=== PATIENT | male | born 1990 | race Hispanic/Latino ===

== ENCOUNTER 2020-10-05 10:50 | Inpatient (IN) | payer MEDICARE ==
[2020-10-05 11:37] LABS: Basophils % (Auto) 0.1 % (0.0-1.8); Eosinophils % (Auto) 0.1 % (0.0-4.3); Hematocrit 39.3 % (35.5-45.6); Hemoglobin 13.3 gm/dl (11.8-15.2); Lymphocytes # (Auto) 0.6 K/mm3 (1.2-5.4); Lymphocytes % (Auto) 4.5 % (13.4-35.0); Mean Corpuscular HGB Conc 34 % (32-34); Mean Corpuscular Volume 93 fl (84-94); Monocytes # (Auto) 1.5 K/mm3 (0.0-0.8); Monocytes % (Auto) 11.4 % (0.0-7.3); Platelet Count 248 K/mm3 (140-440); Red Blood Count 4.25 M/mm3 (3.65-5.03); Red Cell Distribution Width 13.6 % (13.2-15.2)
[2020-10-05 11:44] LABS: INR 0.99 (0.87-1.13)
[2020-10-05 11:45] LABS: Partial Thromboplastin Time 38.9 Sec. (24.2-36.6)
[2020-10-05 11:58] LABS: Creatine Kinase MB 57.7 ng/mL (0.0-4.0)
[2020-10-05 11:59] LABS: Alanine Aminotransferase 52 units/L (7-56); Albumin 4.6 g/dL (3.9-5); BUN/Creatinine Ratio 15; Bilirubin,Direct 0.3 mg/dL (0-0.2); Blood Urea Nitrogen 16 mg/dL (9-20); Calcium 10.3 mg/dL (8.4-10.2); Hemolysis Index 9
--- NOTE | 2020-10-05 12:19 | XRay Report ---
RIGHT HAND 3 VIEW(S) INDICATION / CLINICAL INFORMATION: deformity previous surgery COMPARISON: None available. FINDINGS: BONES / JOINT(S): No acute fracture or subluxation. No significant arthritis. SOFT TISSUES: No significant abnormality. ADDITIONAL FINDINGS: Flexion deformity of little finger PIP joint may be secondary to chronic extenso r tendon injury. Please correlate clinically with patient's mobility Signer Name: Jimmy Stoll MD Signed: 10/05/2020 12:14 PM Workstation Name: [id number]
[2020-10-05] MEDS ORDERED: TETANUS,DIPHTHERIA TOXOID ADULT 0.5 ML INJ IM ONE (14:41)
--- NOTE | 2020-10-05 14:43 | Emergency Department Report ---
ED General Adult HPI - General Chief complaint: Medical Clearance Stated complaint: COLD EXPOSURE Time Seen by Provider: 10/05/20 11:19 Source: patient, EMS Mode of arrival: Stretcher Limitations: Other - History of Present Illness Initial comments: 30-year-old man with a history of schizophrenia and I am told cerebral palsy. Apparently he eloped from his [facility] and got lost overnight. He presented to triage with very cold hands. However, he was not hypothermic. The patient is awake and alert. He is obviously mentally impaired but this seems to be chronic. He is not a source of good information. However he can tell me that he did get lost last night and that he was outside. He states that he had surgery on his right hand in the past. There is chronic deformity of the fifth digit. There are some abrasions. There is no obvious significant ORIF scar. There is a dorsal healed wound which could be a surgical site. He does not repo rt any specific trauma. He does not report immersing his right hand. It is particularly more red and swollen than his left hand though. -: During the night - Related Data Home Medications Medication Instructions Recorded Confirmed Last Taken Divalproex ER [DepaKOTE ER] 500 mg PO DAILY 04/22/16 06/15/16 06/15/16 Venlafaxine HCl [Venlafaxine HCl 75 mg PO QAM 04/22/16 06/15/16 06/15/16 ER] risperiDONE [RisperiDONE] 4 mg PO TID 04/22/16 06/15/16 06/15/16 Divalproex [DepaKOTE DR] 2 tab PO QHS 06/15/16 06/15/16 06/14/16 diphenhydrAMINE [Benadryl CAP] 2 tab PO QHS 06/15/16 06/15/16 06/14/16 haloperidoL [Haldol] 1.5 tab PO BID 06/15/16 06/15/16 06/15/16 hydrOXYzine PAMOATE [Vistaril] 25 mg PO TID 06/15/16 06/15/16 06/15/16 Allergies Allergy/AdvReac Type Severity Reaction Status Date / Time No Known Allergies Allergy Unverified 04/18/16 20:46 ED Review of Systems ROS: Stated complaint: COLD EXPOSURE Other details as noted in HPI Comment: Unobtainable due to pts medical conditions ED Past Medical Hx - Past Medical History Hx Seizures: Yes Hx Psychiatric Treatment: Yes (schizophrenia) - Social History Smoking Status: Current Every Day Smoker - Medications Home Medications: Home Medications Medication Instructions Recorded Confirmed Last Taken Type Divalproex ER [DepaKOTE ER] 500 mg PO DAILY 04/22/16 06/15/16 06/15/16 History Venlafaxine HCl [Venlafaxine HCl 75 mg PO QAM 04/22/16 06/15/16 06/15/16 History ER] risperiDONE [RisperiDONE] 4 mg PO TID 04/22/16 06/15/16 06/15/[address] [DepaKOTE DR] 2 tab PO QHS 06/15/16 06/15/16 06/14/16 History diphenhydrAMINE [Benadryl CAP] 2 tab PO QHS 06/15/16 06/15/16 06/14/16 History haloperidoL [Haldol] 1.5 tab PO BID 06/15/16 06/15/16 06/15/16 History hydrOXYzine PAMOATE [Vistaril] 25 mg PO TID 06/15/16 06/15/16 06/15/16 History ED Physical Exam - General Limitations: Altered Mental Status General appearance: alert, in no apparent distress - Head Head exam: Present: atraumatic, normocephalic - Eye Eye exam: Present: normal appearance. Absent: scleral icterus - ENT ENT exam: Present: mucous membranes moist - Neck Neck exam: Present: normal inspection. Absent: tenderness, meningismus - Respiratory Respiratory exam: Present: normal lung sounds bilaterally. Absent: respiratory distress - Cardiovascular Cardiovascular Exam: Present: regular rate, normal rhythm. Absent: systolic murmur, diastolic murmur, rubs, gallop - GI/Abdominal GI/Abdominal exam: Present: soft, normal bowel sounds. Absent: distended, tenderness, guarding, rebound - Rectal Rectal exam: Present: deferred - Extremities Exam Extremities exam: Present: other (Right hand has 1+ edema, abrasion. Chronic flexion deformity of the fifth digit. Somewhat cooler than the left hand.) - Back Exam Back exam: Present: normal inspection - Neurological Exam Neurological exam: Present: alert, oriented X3, other (No apparent acute focal deficit) - Psychiatric Psychiatric exam: Present: normal affect, normal mood - Skin Skin exam: Present: warm, dry, intact, normal color. Absent: rash ED Course - Reevaluation(s) Reevaluation #1: Patient's hands appear to be improving. He had erythema but no signs of cyanosis at all. I believe he had grade 1 frostbite of the right hand. The left hand was largely unaffected. There are abrasions on the right hand. He was given Ancef and a tetanus toxoid. Hand cellulitis is considered also possible. He was found to be in rhabdomyolysis. He was given IV fluid and admitted to the medical service by Dr. Rincon. 10/05/20 15:52 ED Medical Decision Making - Lab Data Result diagrams: 10/05/20 11:26 10/05/20 11:26 Laboratory Results - last 24 hr 10/05/20 10/05/20 10/05/20 11:04 11:26 11:26 WBC 13.1 H RBC 4.25 Hgb 13.3 Hct 39.3 MCV 93 MCH 31 MCHC 34 RDW 13.6 Plt Count 248 Lymph % (Auto) 4.5 L [place] % (Auto) 11.4 H Eos % (Auto) 0.1 Baso % (Auto) 0.1 Lymph # (Auto) 0.6 L [place] # (Auto) 1.5 H Eos # (Auto) 0.0 Baso # (Auto) 0.0 Seg Neutrophils % 83.9 H Seg Neutrophils # 11.0 H PT 13.0 INR 0.99 APTT 38.9 H Sodium Potassium Chloride Carbon Dioxide Anion Gap BUN Creatinine Estimated GFR BUN/Creatinine Ratio Glucose POC Glucose 54 L Calcium Magnesium Total Bilirubin Direct Bilirubin Indirect Bilirubin AST ALT Alkaline Phosphatase Total Creatine Kinase CK-MB (CK-2) CK-MB (CK-2) Rel Index Total Protein Albumin Albumin/Globulin Ratio Salicylates Acetaminophen Plasma/Serum Alcohol 10/05/20 10/05/20 10/05/20 11:26 11:26 11:26 WBC RBC Hgb Hct MCV MCH MCHC RDW Plt Count Lymph % (Auto) [place] % (Auto) Eos % (Auto) Baso % (Auto) Lymph # (Auto) [place] # (Auto) Eos # (Auto) Baso # (Auto) Seg Neutrophils % Seg Neutrophils # PT INR APTT Sodium 135 L Potassium 4.6 Chloride 96.7 L Carbon Dioxide 19 L Anion Gap 24 BUN 16 Creatinine 1.1 Estimated GFR > 60 BUN/Creatinine Ratio 15 Glucose 65 L POC Glucose Calcium 10.3 H Magnesium 2.00 Total Bilirubin 0.90 Direct Bilirubin 0.3 H Indirect Bilirubin 0.6 AST 208 H ALT 52 Alkaline Phosphatase 47 Total Creatine Kinase 60720 H CK-MB (CK-2) 57.7 H CK-MB (CK-2) Rel Index 0.4 Total Protein 7.4 Albumin 4.6 Albumin/Globulin Ratio 1.6 Salicylates < 0.3 L Acetaminophen 5.0 L Plasma/Serum Alcohol 10/05/20 11:26 WBC RBC Hgb Hct MCV MCH MCHC RDW Plt Count Lymph % (Auto) [place] % (Auto) Eos % (Auto) Baso % (Auto) Lymph # (Auto) [place] # (Auto) Eos # (Auto) Baso # (Auto) Seg Neutrophils % Seg Neutrophils # PT INR APTT Sodium Potassium Chloride Carbon Dioxide Anion Gap BUN Creatinine Estimated GFR BUN/Creatinine Ratio Glucose POC Glucose Calcium Magnesium Total Bilirubin Direct Bilirubin Indirect Bilirubin AST ALT Alkaline Phosphatase Total Creatine Kinase CK-MB (CK-2) CK-MB (CK-2) Rel Index Total Protein Albumin Albumin/Globulin Ratio Salicylates Acetaminophen Plasma/Serum Alcohol < 0.01 Critical care attestation.: If time is entered above; I have spent that time in minutes in the direct care of this critically ill patient, excluding procedure time. ED Disposition Clinical Impression: Cellulitis of hand, right Rhabdomyolysis Qualifiers: Rhabdomyolysis type: traumatic Encounter type: initial encounter Qualified Code(s): T79.6XXA - Traumatic ischemia of muscle, initial encounter Schizophrenia Qualifiers: Schizophrenia type: unspecified Qualified Code(s): F20.9 - Schizophrenia, unspecified Frostbite of hand, right Qualifiers: Encounter type: initial encounter Qualified Code(s): T33.521A - Superficial frostbite of right hand, initial encounter; X31.XXXA - Exposure to excessive natural cold, initial encounter Disposition: OP ADMIT IP TO THIS HOSP Is pt being admited?: Yes Does the pt Need Aspirin: No Condition: Stable Referrals: PRIMARY CARE, [Primary Care Provider] - 3-5 Days Time of Disposition: 15:54
[2020-10-05] MEDS ORDERED: SODIUM CHLORIDE 0.9% 1000 ML 1,000 ML IV ONE (15:12)
[2020-10-05] MEDS ORDERED: SODIUM CHLORIDE 0.9% 1000 ML 1,000 ML ONE (17:49)
--- NOTE | 2020-10-06 00:24 | History and Physical Report ---
History of Present Illness Date of examination: 10/05/20 Date of admission: 10/05/20 15:55 Chief complaint: Altered sensorium since last night History of present illness: 1-year-old male in a residential with history of schizophrenia wandered off and was not found since last night. Was found [place] a ditch by people who called the police. Patient was apparently with decreased responsiveness and exposed to cold. His hands are red and painful. 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 Hands are cold to touch. Slightly painful. In the emergency room patient was found to have a has CK level and patient is near normal baseline level. - Past Medical History --Seizures: Yes --Psychiatric Treatment: Yes (schizophrenia) - Social History Smoking Status: Current Every Day Smoker Surgical history not available family history not available - Medications Home Medications: Home Medications Medication Instructions Recorded Confirmed Last Taken Type Divalproex ER [DepaKOTE ER] 500 mg PO DAILY 04/22/16 06/15/16 06/15/16 History Venlafaxine HCl [Venlafaxine HCl 75 mg PO QAM 04/22/16 06/15/16 06/15/16 History ER] risperiDONE [RisperiDONE] 4 mg PO TID 04/22/16 06/15/16 06/15/16 History Divalproex [Yumiko MENENDEZ] 2 tab PO QHS 06/15/16 06/15/16 06/14/16 History diphenhydrAMINE [Benadryl CAP] 2 tab PO QHS 06/15/16 06/15/16 06/14/16 History haloperidoL [Haldol] 1.5 tab PO BID 06/15/16 06/15/16 06/15/16 History hydrOXYzine PAMOATE [Vistaril] 25 mg PO TID 06/15/16 06/15/16 06/15/16 History Review of Systems ROS: Stated complaint: COLD EXPOSURE Other details as noted in HPI Comment: Unobtainable due to pts medical conditions Medications and Allergies Allergies Allergy/AdvReac Type Severity Reaction Status Date / Time No Known Allergies Allergy Unverified 04/18/16 20:46 Home Medications Medication Instructions Recorded Confirmed Last Taken Type Divalproex ER [DepaKOTE ER] 500 mg PO DAILY 04/22/16 10/05/20 06/15/16 History risperiDONE [RisperiDONE] 4 mg PO TID 04/22/16 10/05/20 06/15/16 History hydrOXYzine PAMOATE [Vistaril] 25 mg PO TID 06/15/16 10/05/20 06/15/16 History Alprazolam 0.5 mg BID 10/05/20 10/05/20 Unknown History Benztropine 1 mg BID 10/05/20 10/05/20 Unknown History Oxybutynin 5 mg TID 10/05/20 10/05/20 Unknown History chlorproMAZINE 150 mg BID 10/05/20 10/05/20 Unknown History Exam - Constitutional Vitals: Temp Pulse Resp BP Pulse Ox 99.0 F 95 H 18 106/73 98 10/05/20 20:06 10/05/20 20:06 10/05/20 20:06 10/05/20 20:06 10/05/20 20:06 General appearance: Present: no acute distress, well-nourished - EENT Eyes: Present: PERRL ENT: hearing intact, clear oral mucosa - Neck Neck: Present: supple, normal ROM - Respiratory Respiratory effort: normal Respiratory: bilateral: CTA - Cardiovascular Heart rate: 78 Rhythm: regular Heart Sounds: Present: S1 & S2. Absent: rub, click - Extremities Extremities: pulses symmetrical, No edema Extremity abnormal: other (Both hands are erythematous and cold but pulses can be felt) Peripheral Pulses: within normal limits - Abdominal General gastrointestinal: Present: soft, non-tender, non-distended, normal bowel sounds Male genitourinary: Present: normal - Integumentary Integumentary: Present: clear, warm, dry - Musculoskeletal Musculoskeletal: gait normal, strength equal bilaterally - Psychiatric Psychiatric: appropriate mood/affect, intact judgment & insight - Neurologic Neurologic: CNII-XII intact, moves all extremities Results - Labs CBC & Chem 7: 10/05/20 11:26 10/05/20 11:26 Labs: Laboratory Last Values WBC 13.1 K/mm3 (4.5-11.0) H 10/05/20 11:26 RBC 4.25 M/mm3 (3.65-5.03) 10/05/20 11:26 Hgb 13.3 gm/dl (11.8-15.2) 10/05/20 11:26 Hct 39.3 % (35.5-45.6) 10/05/20 11:26 MCV 93 fl (84-94) 10/05/20 11:26 MCH 31 pg (28-32) 10/05/20 11:26 MCHC 34 % (32-34) 10/05/20 11:26 RDW 13.6 % (13.2-15.2) 10/05/20 11:26 Plt Count 248 K/mm3 (140-440) 10/05/20 11:26 Lymph % (Auto) 4.5 % (13.4-35.0) L 10/05/20 11:26 [place] % (Auto) 11.4 % (0.0-7.3) H 10/05/20 11:26 Eos % (Auto) 0.1 % (0.0-4.3) 10/05/20 11:26 Baso % (Auto) 0.1 % (0.0-1.8) 10/05/20 11:26 Lymph # (Auto) 0.6 K/mm3 (1.2-5.4) L 10/05/20 11:26 [place] # (Auto) 1.5 K/mm3 (0.0-0.8) H 10/05/20 11:26 Eos # (Auto) 0.0 K/mm3 (0.0-0.4) 10/05/20 11:26 Baso # (Auto) 0.0 K/mm3 (0.0-0.1) 10/05/20 11:26 Seg Neutrophils % 83.9 % (40.0-70.0) H 10/05/20 11:26 Seg Neutrophils # 11.0 K/mm3 (1.8-7.7) H 10/05/20 11:26 PT 13.0 Sec. (12.2-14.9) 10/05/20 11:26 INR 0.99 (0.87-1.13) 10/05/20 11:26 APTT 38.9 Sec. (24.2-36.6) H 10/05/20 11:26 Sodium 135 mmol/L (137-145) L 10/05/20 11:26 Potassium 4.6 mmol/L (3.6-5.0) 10/05/20 11:26 Chloride 96.7 mmol/L (98-107) L 10/05/20 11:26 Carbon Dioxide 19 mmol/L (22-30) L 10/05/20 11:26 Anion Gap 24 mmol/L 10/05/20 11:26 BUN 16 mg/dL (9-20) 10/05/20 11:26 Creatinine 1.1 mg/dL (0.8-1.3) 10/05/20 11:26 Estimated GFR > 60 ml/min 10/05/20 11:26 BUN/Creatinine Ratio 15 % 10/05/20 11:26 Glucose 65 mg/dL (75-100) L 10/05/20 11:26 POC Glucose 54 mg/dL (70-105) L 10/05/20 11:04 Calcium 10.3 mg/dL (8.4-10.2) H 10/05/20 11:26 Magnesium 2.00 mg/dL (1.7-2.3) 10/05/20 11:26 Total Bilirubin 0.90 mg/dL (0.1-1.2) 10/05/20 11:26 Direct Bilirubin 0.3 mg/dL (0-0.2) H 10/05/20 11:26 Indirect Bilirubin 0.6 mg/dL 10/05/20 11:26 AST 208 units/L (5-40) H 10/05/20 11:26 ALT 52 units/L (7-56) 10/05/20 11:26 Alkaline Phosphatase 47 units/L (35-129) 10/05/20 11:26 Total Creatine Kinase 87391 units/L (55-170) H 10/05/20 11:26 CK-MB (CK-2) 57.7 ng/mL (0.0-4.0) H 10/05/20 11:26 CK-MB (CK-2) Rel Index 0.4 (0-4) 10/05/20 11:26 Total Protein 7.4 g/dL (6.3-8.2) 10/05/20 11:26 Albumin 4.6 g/dL (3.9-5) 10/05/20 11:26 Albumin/Globulin Ratio 1.6 % 10/05/20 11:26 Salicylates < 0.3 mg/dL (2.8-20.0) L 10/05/20 11:26 Acetaminophen 5.0 ug/mL (10.0-30.0) L 10/05/20 11:26 Plasma/Serum Alcohol < 0.01 % (0-0.07) 10/05/20 11:26 Short CBC 10/05/20 Range/Units 11:26 WBC 13.1 H (4.5-11.0) K/mm3 Hgb 13.3 (11.8-15.2) gm/dl Hct 39.3 (35.5-45.6) % Plt Count 248 (140-440) K/mm3 BMP 10/05/20 11:26 Sodium 135 L Potassium 4.6 Chloride 96.7 L Carbon Dioxide 19 L BUN 16 Creatinine 1.1 Glucose 65 L Calcium 10.3 H Cardiac Enzymes 10/05/20 Range/Units 11:26 Total Creatine Kinase 00844 H (55-170) units/L CK-MB (CK-2) 57.7 H (0.0-4.0) ng/mL Liver Function 10/05/20 Range/Units 11:26 Total Bilirubin 0.90 (0.1-1.2) mg/dL Direct Bilirubin 0.3 H (0-0.2) mg/dL AST 208 H (5-40) units/L ALT 52 (7-56) units/L Alkaline Phosphatase 47 (35-129) units/L Albumin 4.6 (3.9-5) g/dL - Imaging and Cardiology Imaging and Cardiology: Hand x-ray BONES / JOINT(S): No acute fracture or subluxation. No significant arthritis. SOFT TISSUES: No significant abnormality. ADDITIONAL FINDINGS: Flexion deformity of little finger PIP joint may be secondary to chronic extensor tendon injury. Please correlate clinically with patient's mobility Assessment and Plan Advance Directives: Yes (Full code) VTE prophylaxis?: Chemical Plan of care discussed with patient/family: Yes - Patient Problems (1) Rhabdomyolysis Current Visit: Yes Status: Acute Qualifiers: Rhabdomyolysis type: traumatic Encounter type: initial encounter Qualified Code(s): T79.6XXA - Traumatic ischemia of muscle, initial encounter Plan to address problem: IV fluids for now Monitor creatinine kinase (2) Frostbite of hand, right Current Visit: Yes Status: Acute Qualifiers: Encounter type: initial encounter Qualified Code(s): T33.521A - Superficial frostbite of right hand, initial encounter; X31.XXXA - Exposure to excessive natural cold, initial encounter Plan to address problem: Hand looks normal to me and no signs of infection Per ER physician- frostbite Observation for now (3) Schizophrenia Current Visit: Yes Status: Chronic Qualifiers: Schizophrenia type: unspecified Qualified Code(s): F20.9 - Schizophrenia, u nspecified Plan to address problem: Continue his home medications Mental health consult (4) DVT prophylaxis Current Visit: Yes Status: Acute Plan to address problem: Heparin and GI prophylaxis
[2020-10-06] MEDS ORDERED: METOCLOPRAMIDE 10 MG/2 ML INJ IV PRN (00:28)
[2020-10-06] MEDS ORDERED: oxyCODONE /ACETAMINOPHEN 5-325MG TAB PO PRN (00:28)
[2020-10-06] MEDS ORDERED: ACETAMINOPHEN 325 MG TAB PO PRN (00:28)
[2020-10-06] MEDS ORDERED: ONDANSETRON 4 MG/2 ML INJ IV PRN (00:28)
[2020-10-06] MEDS ORDERED: BENZTROPINE 1 MG PO SCH (00:45)
[2020-10-06] MEDS ORDERED: CHLORPROMAZINE PO SCH (00:45)
[2020-10-06] MEDS ORDERED: HEPARIN 5,000 UNIT/1 ML VIAL SUB-Q SCH (00:45)
[2020-10-06] MEDS ORDERED: NON-FORMULARY EACH (Alprazolam 0.5 MG) PO SCH (00:45)
[2020-10-06 01:24] LABS: Basophils % (Auto) 0.4 % (0.0-1.8); Eosinophils # (Auto) 0.1 K/mm3 (0.0-0.4); Eosinophils % (Auto) 1.5 % (0.0-4.3); Hematocrit 34.7 % (35.5-45.6); Lymphocytes # (Auto) 1.4 K/mm3 (1.2-5.4); Lymphocytes % (Auto) 16.6 % (13.4-35.0); Mean Corpuscular HGB Conc 35 % (32-34); Mean Corpuscular Volume 91 fl (84-94); Monocytes # (Auto) 1.2 K/mm3 (0.0-0.8); Monocytes % (Auto) 13.6 % (0.0-7.3); Platelet Count 221 K/mm3 (140-440); Red Blood Count 3.84 M/mm3 (3.65-5.03); Red Cell Distribution Width 13.6 % (13.2-15.2)
[2020-10-06 01:42] LABS: Alanine Aminotransferase 40 units/L (7-56); Albumin 3.5 g/dL (3.9-5); BUN/Creatinine Ratio 11; Blood Urea Nitrogen 11 mg/dL (9-20); Hemolysis Index 5
[2020-10-06] MEDS: SODIUM CHLORIDE 0.9% 1000 ML 1,000 ML IV SCH (01:49)
[2020-10-06] MEDS: BENZTROPINE 1 MG TAB PO SCH ×3 (01:50→22:25)
[2020-10-06] MEDS: ALPRAZolam 0.5 MG TAB PO SCH ×3 (01:50→22:21)
[2020-10-06] MEDS: HEPARIN 5,000 UNIT/1 ML VIAL SUB-Q SCH ×3 (01:51→22:22)
[2020-10-06] MEDS: chlorproMAZINE 25 MG TAB PO SCH ×3 (01:51→22:25)
[2020-10-06 05:15] LABS: Amphetamine Screen,Urine PRESUMPTIVE NEGATIVE; Benzodiazepines Screen,Urine PRESUMPTIVE NEGATIVE; Cannabinoid Screen,Urine PRESUMPTIVE NEGATIVE; Cocaine Screen,Urine PRESUMPTIVE NEGATIVE; Methadone Screen,Urine PRESUMPTIVE NEGATIVE; Opiate Screen,Urine PRESUMPTIVE NEGATIVE
[2020-10-06 05:28] LABS: Bilirubin,Urine NEG (Negative); Blood,Urine NEG (Negative); Color,Urine Straw (Yellow); Protein,Urine <15 mg/dL mg/dL (Negative); Urobilinogen,Urine < 2.0 mg/dL (<2.0); WBC,Urine < 1.0 /HPF (0.0-6.0)
[2020-10-06] MEDS ORDERED: OXYBUTYNIN 5 MG PO SCH (08:00)
[2020-10-06] MEDS ORDERED: risperiDONE 1 MG TAB PO SCH ×2 (08:00)
[2020-10-06] MEDS ORDERED: risperiDONE 3 MG TAB PO SCH (08:00)
[2020-10-06] MEDS: DIVALPROEX ER 500 MG TAB PO SCH (10:28)
[2020-10-06] MEDS: FAMOTIDINE 20 MG TAB PO SCH ×2 (10:28→22:21)
[2020-10-06] MEDS: hydrOXYzine PAMOATE 25 MG CAP PO SCH ×3 (10:30→22:25)
[2020-10-06] MEDS: OXYBUTYNIN 5 MG TAB PO SCH ×3 (10:41→22:21)
--- NOTE | 2020-10-06 11:41 | Consultation ---
History of Present Illness - Reason for Consult Consult date: 10/06/20 Reason for consult: history schizophrenia - History of Present Psychiatric Illness Castillo Wiggins is a 30y/o male patient who was brought to the ER after eloping from his [facility] and was found hypothermic. During my interview with the patient today he is a/o x 2. It is documented that he has a history of schizophrenia. The patient seems mentally impaired. His responses are delayed. He's unable to give a lot of insight into what's going on with him or his history. He replies "might fine" when asking how he felt. The patient did state that he was at his "usp and was walking next to the road." He denies any illicit drug use, alcohol or nicotine. He states "no, seriously" when asked. The patient also denies hallucinations of any kind. He states "not at all." When asked about SI/HI the patient replies "never." PAST PSYCHIATRIC HISTORY Diagnoses: Schizophrenia Suicide attempts or Self-harm behavior: Denies Prior psychiatric hospitalizations: Substance Abuse history: Denies Previous psychiatric medications tried: Depakote Outpatient treatment: PAST MEDICAL HISTORY: None reported Family Psychiatric History: None reported or documented SOCIAL HISTORY Marital Status: Single Living Arrangements: custodial Employment Status: Disabled Access to guns/weapons: Education: College History of Abuse: Legal History: Denies REVIEW OF SYSTEMS Constitutional: Negative for weight loss ENT: Negative for stridor Respiratory: Negative for cough or hemoptysis All other systems reviewed and are negative MENTAL STATUS EXAMINATION General Appearance and Behavior: Age appropriate, good hygiene, wearing appropriate clothes, fair eye contact Cooperation: Participating/engaged Psychomotor Behavior: Psychomotor normal Mood: "mighty fine" Affect and affective range: Congruent with mood Thought Process: impaired Thought Content: None Speech: Normal rate, volume and rhythm, delayed responses Suicidal Ideation: Denies Homicidal Ideation: Denies Impulse Control: Limited Insight and Judgment: Limited insight and judgment Memory: Impaired Attention: Normal Orientation: Alert Assessment and Plan History of Schizophrenia Treatment Plan MEDICATIONS: agree with home medications Risks, benefits and alternatives of medications discussed with the patient, questions answered and consent obtained from patient. PSYCHOTHERAPY: Supportive psychotherapy provided MEDICAL: Per primary team DELIRIUM PRECAUTIONS: Please re-orient patient frequently, keep lights on during the day, and minimize benzodiazepines and opiates as these medications could worsen patient's confusion. 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 Will follow during his stay on the floor to see how he progresses. FOLLOW-UP: Will follow Thank you for this consult. Please contact with any questions and/or concerns. Case staffed with Dr. Roth Medications and Allergies Allergies Allergy/AdvReac Type Severity Reaction Status Date / Time No Known Allergies Allergy Unverified 04/18/16 20:46 Home Medications Medication Instructions Recorded Confirmed Last Taken Type Divalproex ER [DepaKOTE ER] 500 mg PO DAILY 04/22/16 10/05/20 06/15/16 History risperiDONE [RisperiDONE] 4 mg PO TID 04/22/16 10/05/20 06/15/16 History hydrOXYzine PAMOATE [Vistaril] 25 mg PO TID 06/15/16 10/05/20 06/15/16 History Alprazolam 0.5 mg BID 10/05/20 10/05/20 Unknown History Benztropine 1 mg BID 10/05/20 10/05/20 Unknown History Oxybutynin 5 mg TID 10/05/20 10/05/20 Unknown History chlorproMAZINE 150 mg BID 10/05/20 10/05/20 Unknown History Active Meds: Active Medications Acetaminophen (Tylenol) 650 mg PO Q4H PRN PRN Reason: Pain MILD(1-3)/Fever >100.5/[place] Alprazolam (Xanax) 0.5 mg PO BID [facility] [place] Last Admin: 10/06/20 10:28 Dose: 0.5 mg Documented by: Benztropine Mesylate (Cogentin) 1 mg PO BID [facility] [place] Last Admin: 10/06/20 10:30 Dose: 1 mg Documented by: Chlorpromazine HCl (Thorazine) 150 mg PO BID [facility] [place] Last Admin: 10/06/20 10:30 Dose: 150 mg Documented by: Divalproex Sodium (Depakote Er) 500 mg PO DAILY [facility] [place] Last Admin: 10/06/20 10:28 Dose: 500 mg Documented by: Famotidine (Pepcid) 20 mg PO BID [facility] [place] Last Admin: 10/06/20 10:28 Dose: 20 mg Documented by: Heparin Sodium (Porcine) (Heparin) 5,000 unit SUB-Q Q12HR [facility] [place] Last Admin: 10/06/20 10:31 Dose: 5,000 unit Documented by: Hydroxyzine Pamoate (Vistaril) 25 mg PO TID [facility] [place] Last Admin: 10/06/20 10:30 Dose: 25 mg Documented by: Sodium Chloride (Nacl 0.9% 1000 Ml) 1,000 mls @ 125 mls/hr IV DIRECT [facility] [place] Last Admin: 10/06/20 01:49 Dose: 125 mls/hr Documented by: Metoclopramide HCl (Reglan) 10 mg IV Q6H PRN PRN Reason: Nausea And Vomiting Ondansetron HCl (Zofran) 4 mg IV Q8H PRN PRN Reason: Nausea And Vomiting Oxybutynin Chloride (Ditropan) 5 mg PO TID [facility] [place] Last Admin: 10/06/20 10:41 Dose: 5 mg Documented by: Oxycodone/Acetaminophen (Percocet 5/325) 1 tab PO Q6H PRN PRN Reason: Pain, Moderate (4-6) Risperidone (Risperdal) 3 mg PO TID [facility] [place] Risperidone (Risperdal) 1 mg PO TID [facility] [place] Last Admin: 10/06/20 10:29 Dose: 1 mg Documented by: Sodium Chloride (Sodium Chloride Flush Syringe 10 Ml) 10 ml IV BID [facility] [place] Last Admin: 10/06/20 10:35 Dose: 10 ml Documented by: Sodium Chloride (Sodium Chloride Flush Syringe 10 Ml) 10 ml IV PRN PRN PRN Reason: LINE FLUSH Last Admin: 10/06/20 01:52 Dose: 10 ml Documented by: Mental Status Exam - Vital signs Last Vital Signs Temp 98.3 F 10/06/20 05:48 Pulse 83 10/06/20 05:48 Resp 18 10/06/20 05:48 BP 88/44 10/06/20 05:48 Pulse Ox 93 10/06/20 05:48 Results Result Diagrams: 10/06/20 00:57 10/06/20 00:57 Abnormal lab results 10/05/20 10/05/20 10/05/20 Range/Units 11:26 11:26 11:26 Hct (35.5-45.6) % MCHC (32-34) % [place] % (Auto) (0.0-7.3) % [place] # (Auto) (0.0-0.8) K/mm3 APTT 38.9 H (24.2-36.6) Sec. Sodium 135 L (137-145) mmol/L Chloride 96.7 L (98-107) mmol/L Carbon Dioxide 19 L (22-30) mmol/L Glucose 65 L (75-100) mg/dL Calcium 10.3 H (8.4-10.2) mg/dL Direct Bilirubin 0.3 H (0-0.2) mg/dL AST 208 H (5-40) units/L Total Creatine Kinase 21014 H (55-170) units/L CK-MB (CK-2) 57.7 H (0.0-4.0) ng/mL Total Protein (6.3-8.2) g/dL Albumin (3.9-5) g/dL Salicylates < 0.3 L (2.8-20.0) mg/dL Acetaminophen (10.0-30.0) ug/mL 10/05/20 10/06/20 10/06/20 Range/Units 11:26 00:57 00:57 Hct 34.7 L (35.5-45.6) % MCHC 35 H (32-34) % [place] % (Auto) 13.6 H (0.0-7.3) % [place] # (Auto) 1.2 H (0.0-0.8) K/mm3 APTT (24.2-36.6) Sec. Sodium (137-145) mmol/L Chloride (98-107) mmol/L Carbon Dioxide (22-30) mmol/L Glucose 121 H (75-100) mg/dL Calcium (8.4-10.2) mg/dL Direct Bilirubin (0-0.2) mg/dL AST 134 H (5-40) units/L Total Creatine Kinase (55-170) units/L CK-MB (CK-2) (0.0-4.0) ng/mL Total Protein 5.7 L D (6.3-8.2) g/dL Albumin 3.5 L (3.9-5) g/dL Salicylates (2.8-20.0) mg/dL Acetaminophen 5.0 L (10.0-30.0) ug/mL 10/06/20 Range/Units 00:57 Hct (35.5-45.6) % MCHC (32-34) % [place] % (Auto) (0.0-7.3) % [place] # (Auto) (0.0-0.8) K/mm3 APTT (24.2-36.6) Sec. Sodium (137-145) mmol/L Chloride (98-107) mmol/L Carbon Dioxide (22-30) mmol/L Glucose (75-100) mg/dL Calcium (8.4-10.2) mg/dL Direct Bilirubin (0-0.2) mg/dL AST (5-40) units/L Total Creatine Kinase 5448 H (55-170) units/L CK-MB (CK-2) (0.0-4.0) ng/mL Total Protein (6.3-8.2) g/dL Albumin (3.9-5) g/dL Salicylates (2.8-20.0) mg/dL Acetaminophen (10.0-30.0) ug/mL All other labs normal.
--- NOTE | 2020-10-06 12:30 | Progress Note ---
Subjective Date of service: 10/06/20 Interval history: 30-year-old male in a long term with history of schizophrenia wandered off and was not found since last night. Was found in a ditch by people who called the police. Patient was apparently with decreased responsiveness and exposed to cold. His hands are red and painful. 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 Hands are cold to touch. Slightly painful. In the emergency room patient was found to have a has CK level and patient is near normal baseline level. 10/06 patient is resting in the bed, no apparent distress, difficult to communicate with, responds to questions with eyes closed,, denies any pain, chest pain or shortness of breath. Denies fever or chills. Psychiatry note reviewed. Vital signs blood pressure this morning dropped to 88 systolic. Lab results reviewed Assessment and plan Rhabdomyolysis Improving CK dropped from 13,000- approximately 5000 today Continue IV fluids with normal saline Possible discharge tomorrow if further drop in CK Chronic schizophrenia Patient appears quite sleepy Psych note reviewed His home anti-psych medications were not addressed Will decrease risperidone to 2 mg 3 times daily for now Continue Depakote Exposure to cold Temp is in the normal range now Leukocytosis-likely reactive Improved Objective - Constitutional Vitals: Vital Signs - 12hr 10/06/20 05:48 Temperature 98.3 F Pulse Rate 83 Respiratory 18 Rate Blood Pressure 88/44 O2 Sat by Pulse 93 Oximetry General appearance: Present: no acute distress - EENT Eyes: PERRL, EOM intact ENT: hearing intact - Neck Neck: supple, normal ROM - Respiratory Respiratory effort: normal Respiratory: bilateral: CTA - Cardiovascular Rhythm: regular Heart Sounds: Present: S1 & S2 Extremities: No edema - Gastrointestinal General gastrointestinal: Present: soft, non-tender Rectal Exam: deferred - Genitourinary Male genitourinary: deferred - Integumentary Integumentary: clear, warm - Neurologic Neurologic: no focal deficits, moves all extremities - Psychiatric Psychiatric: other (Flat affect) - Labs CBC & Chem 7: 10/06/20 00:57 10/06/20 00:57 Labs: Abnormal lab results 10/06/20 10/06/20 10/06/20 Range/Units 00:57 00:57 00:57 Hct 34.7 L (35.5-45.6) % MCHC 35 H (32-34) % [place] % (Auto) 13.6 H (0.0-7.3) % [place] # (Auto) 1.2 H (0.0-0.8) K/mm3 Glucose 121 H (75-100) mg/dL AST 134 H (5-40) units/L Total Creatine Kinase 5448 H (55-170) units/L Total Protein 5.7 L D (6.3-8.2) g/dL Albumin 3.5 L (3.9-5) g/dL
[2020-10-06] MEDS: risperiDONE 1 MG TAB PO SCH ×2 (19:28→22:21)
[2020-10-07] MEDS: SODIUM CHLORIDE 0.9% 1000 ML 1,000 ML IV SCH ×2 (05:58→21:37)
[2020-10-07 06:55] LABS: Basophils % (Auto) 0.7 % (0.0-1.8); Eosinophils # (Auto) 0.3 K/mm3 (0.0-0.4); Eosinophils % (Auto) 5.1 % (0.0-4.3); Hematocrit 33.4 % (35.5-45.6); Hemoglobin 11.6 gm/dl (11.8-15.2); Lymphocytes # (Auto) 2.3 K/mm3 (1.2-5.4); Lymphocytes % (Auto) 36.9 % (13.4-35.0); Mean Corpuscular HGB Conc 35 % (32-34); Mean Corpuscular Volume 91 fl (84-94); Monocytes # (Auto) 0.7 K/mm3 (0.0-0.8); Monocytes % (Auto) 12.1 % (0.0-7.3); Platelet Count 226 K/mm3 (140-440); Red Blood Count 3.68 M/mm3 (3.65-5.03)
[2020-10-07 07:12] LABS: Alanine Aminotransferase 46 units/L (7-56); Albumin 3.4 g/dL (3.9-5); BUN/Creatinine Ratio 13; Blood Urea Nitrogen 10 mg/dL (9-20); Calcium 9.1 mg/dL (8.4-10.2); Hemolysis Index 2
[2020-10-07 07:13] LABS: BUN/Creatinine Ratio 13; Blood Urea Nitrogen 10 mg/dL (9-20); Hemolysis Index 6
[2020-10-07] MEDS: FAMOTIDINE 20 MG TAB PO SCH ×2 (09:32→21:37)
[2020-10-07] MEDS: HEPARIN 5,000 UNIT/1 ML VIAL SUB-Q SCH ×2 (09:32→21:39)
[2020-10-07] MEDS: ALPRAZolam 0.5 MG TAB PO SCH ×2 (09:33→21:37)
[2020-10-07] MEDS: OXYBUTYNIN 5 MG TAB PO SCH ×3 (09:33→21:37)
[2020-10-07] MEDS: DIVALPROEX ER 500 MG TAB PO SCH (09:33)
[2020-10-07] MEDS: risperiDONE 1 MG TAB PO SCH ×3 (09:33→21:38)
[2020-10-07] MEDS: hydrOXYzine PAMOATE 25 MG CAP PO SCH ×3 (09:34→21:37)
[2020-10-07] MEDS: BENZTROPINE 1 MG TAB PO SCH ×2 (09:34→21:38)
[2020-10-07] MEDS: chlorproMAZINE 25 MG TAB PO SCH ×2 (09:34→21:37)
[2020-10-07] MEDS ORDERED: SODIUM CHLORIDE 0.9% 1000 ML 2,000 ML IV ONE (10:00)
--- NOTE | 2020-10-07 10:13 | Discharge Summary ---
Providers - Providers Date of Admission: 10/06/20 14:58 Attending physician: ADRIANA ROSS MD 10/06/20 00:33 Consult to Mental Health [CONS] Routine Reason For Exam: History of schizophrenia and elopement Primary care physician: RN [employer] Hospitalization Reason for admission: Altered mental status Condition: Stable Hospital course: 30-year-old male in a retirement with history of schizophrenia wandered off and was not found since last night. Was found in a ditch by people who called the police. Patient was apparently with decreased responsiveness and exposed to cold. His hands are red and painful. 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 Hands are cold to touch. Slightly painful. In the emergency room patient was found to have a has CK level and patient is near normal baseline level. 10/06 patient is resting in the bed, no apparent distress, difficult to communicate with, responds to questions with eyes closed,, denies any pain, chest pain or shortness of breath. Denies fever or chills. Psychiatry note reviewed. Vital signs blood pressure this morning dropped to 88 systolic. Lab results reviewed 10/07: Patient seen and examined today resting comfortably CK is down to 1300. Patient was seen by psych team. No recommendation for inpatient psych. Can be discharged at this time. Case management consulted to assist with discharge disposition. 10/08: CK further improved. Patient discharged today. Assessment and plan Rhabdomyolysis Improving CK dropped from 13,000- approximately 5000 today Continue IV fluids with normal saline Possible discharge tomorrow if further drop in CK Acute metabolic encephalopathy, now resolved Likely secondary to hypothermia chronic schizophrenia Patient appears quite sleepy Psych note reviewed His home anti-psych medications were not addressed Will decrease risperidone to 2 mg 3 times daily for now Continue Depakote No clinical evidence of Cellulitis Exposure to weather elements: Cold Temp is in the normal range now Leukocytosis-likely reactive Improved Disposition: DC-01 TO HOME OR SELFCARE Time spent for discharge: 35-minute Core Measure Documentation - Palliative Care Palliative Care/ Comfort Measures: Not Applicable - Core Measures Any of the following diagnoses?: none Exam - Physical Exam Narrative exam: VITAL SIGNS: Reviewed. GENERAL: The patient appears normally developed, vital signs as documented. HEAD: No signs of head trauma. EYES: Pupils are equal. Extraocular motions intact. EARS: Hearing grossly intact. MOUTH: Oropharynx is normal. NECK: No adenopathy, no JVD. CHEST: Chest with clear breath sounds bilaterally. No wheezes, rales, or rhonchi. CARDIAC: Regular rate and rhythm. S1 and S2, without murmurs, gallops, or rubs. VASCULAR: No Edema. Peripheral pulses normal and equal in all extremities. ABDOMEN: Soft, non tender and non distended. No rebound or guarding, and no masses palpated. Bowel Sounds normal. MUSCULOSKELETAL: Good range of motion of all major joints. Extremities without clubbing, cyanosis or edema. NEUROLOGIC EXAM: Alert and oriented x 3 No focal sensory or strength deficits. Speech normal. Follows commands. PSYCHIATRIC: Mood normal. SKIN: detail exam as documented in skin assessment - Constitutional Vitals: Temp Pulse Resp BP Pulse Ox 97.3 F L 78 16 90/51 96 10/07/20 05:58 10/07/20 05:58 10/07/20 05:58 10/07/20 05:58 10/07/20 05:58 Plan Activity: advance as tolerated, fall precautions Diet: low fat Special Instructions: record daily weights, record daily BP diary Additional Instructions: Continue to follow with outpatient psychiatrist Follow up with: PRIMARY MD MARY [Primary Care Provider] - 3-5 Days [facility] [Outside] - 7 Days
--- NOTE | 2020-10-07 12:26 | Progress Note ---
Subjective - Reason for Consult Consult date: 10/07/20 Reason for consult: ams - Chief Complaint Chief complaint: The patient was resting quietly. He easily arouses. He says he slept "pretty good." He denies SI/HI or hallucinations of any kind. Nurse at bedside states the patient has been calm, cooperative and hasn't shown any aggressive or negative behaviors. REVIEW OF SYSTEMS Constitutional: Negative for weight loss ENT: Negative for stridor Respiratory: Negative for cough or hemoptysis All other systems reviewed and are negative MENTAL STATUS EXAMINATION General Appearance and Behavior: Age appropriate, good hygiene, wearing appropriate clothes, fair eye contact Cooperation: Participating/engaged Psychomotor Behavior: Psychomotor normal Mood: "good" Affect and affective range: Congruent with mood Thought Process: impaired Thought Content: None Speech: Normal rate, volume and rhythm, delayed responses Suicidal Ideation: Denies Homicidal Ideation: Denies Impulse Control: Limited Insight and Judgment: Limited insight and judgment Memory: Impaired Attention: Normal Orientation: Alert Assessment and Plan History of Schizophrenia Treatment Plan MEDICATIONS: agree with home medications Risks, benefits and alternatives of medications discussed with the patient, questions answered and consent obtained from patient. PSYCHOTHERAPY: Supportive psychotherapy provided MEDICAL: Per primary team DELIRIUM PRECAUTIONS: Please re-orient patient frequently, keep lights on during the day, and minimize benzodiazepines and opiates as these medications could worsen patient's confusion. 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 Please contact with any questions and/or concerns. Case staffed with Dr. Roth Mental Status Exam - Vital signs Last Vital Signs Temp 97.4 F L 10/07/20 10:45 Pulse 93 H 10/07/20 10:45 Resp 19 10/07/20 10:45 BP 91/48 10/07/20 10:45 Pulse Ox 97 10/07/20 10:45
[2020-10-08 02:54] VITALS: BP 111/64
--- NOTE | 2020-10-08 07:54 | Progress Note ---
Assessment and Plan Assessment and plan: 30-year-old male in a residential with history of schizophrenia wandered off and was not found since last night. Was found in a ditch by people who called the police. Patient was apparently with decreased responsiveness and exposed to cold. His hands are red and painful. 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 Hands are cold to touch. Slightly painful. In the emergency room patient was found to have a has CK level and patient is near normal baseline level. 10/06 patient is resting in the bed, no apparent distress, difficult to communicate with, responds to questions with eyes closed,, denies any pain, chest pain or shortness of breath. Denies fever or chills. Psychiatry note reviewed. Vital signs blood pressure this morning dropped to 88 systolic. Lab results reviewed 10/07: Patient clinical stable for discharge, awaiting placement Assessment and plan Rhabdomyolysis Improving CK dropped from 13,000- approximately 5000 today Continue IV fluids with normal saline Possible discharge tomorrow if further drop in CK Chronic schizophrenia Patient appears quite sleepy Psych note reviewed His home anti-psych medications were not addressed Will decrease risperidone to 2 mg 3 times daily for now Continue Depakote Exposure to cold Temp is in the normal range now Leukocytosis-likely reactive Improved History Interval history: Patient seen and examined, no new complaints Hospitalist Physical - Physical exam Narrative exam: VITAL SIGNS: Reviewed. GENERAL: The patient appears normally developed, vital signs as documented. HEAD: No signs of head trauma. EYES: Pupils are equal. Extraocular motions intact. EARS: Hearing grossly intact. MOUTH: Oropharynx is normal. NECK: No adenopathy, no JVD. CHEST: Chest with clear breath sounds bilaterally. No wheezes, rales, or rhonchi. CARDIAC: Regular rate and rhythm. S1 and S2, without murmurs, gallops, or rubs. VASCULAR: No Edema. Peripheral pulses normal and equal in all extremities. ABDOMEN: Soft, non tender and non distended. No rebound or guarding, and no masses palpated. Bowel Sounds normal. MUSCULOSKELETAL: Good range of motion of all major joints. Extremities without clubbing, cyanosis or edema. NEUROLOGIC EXAM: Alert and oriented x 3 No focal sensory or strength deficits. Speech normal. Follows commands. PSYCHIATRIC: Mood normal. SKIN: detail exam as documented in skin assessment - Constitutional Vitals: Temp Pulse Resp BP Pulse Ox 97.9 F 79 16 111/64 99 10/07/20 21:58 10/07/20 21:58 10/07/20 21:58 10/07/20 21:58 10/07/20 21:58 General appearance: Present: no acute distress Results - Labs CBC & Chem 7: 10/07/20 04:42 10/07/20 04:42 Labs: Laboratory Last Values WBC 6.2 K/mm3 (4.5-11.0) 10/07/20 04:42 RBC 3.68 M/mm3 (3.65-5.03) 10/07/20 04:42 Hgb 11.6 gm/dl (11.8-15.2) L 10/07/20 04:42 Hct 33.4 % (35.5-45.6) L 10/07/20 04:42 MCV 91 fl (84-94) 10/07/20 04:42 MCH 32 pg (28-32) 10/07/20 04:42 MCHC 35 % (32-34) H 10/07/20 04:42 RDW 14.0 % (13.2-15.2) 10/07/20 04:42 Plt Count 226 K/mm3 (140-440) 10/07/20 04:42 Lymph % (Auto) 36.9 % (13.4-35.0) H 10/07/20 04:42 [place] % (Auto) 12.1 % (0.0-7.3) H 10/07/20 04:42 Eos % (Auto) 5.1 % (0.0-4.3) H 10/07/20 04:42 Baso % (Auto) 0.7 % (0.0-1.8) 10/07/20 04:42 Lymph # (Auto) 2.3 K/mm3 (1.2-5.4) 10/07/20 04:42 [place] # (Auto) 0.7 K/mm3 (0.0-0.8) 10/07/20 04:42 Eos # (Auto) 0.3 K/mm3 (0.0-0.4) 10/07/20 04:42 Baso # (Auto) 0.0 K/mm3 (0.0-0.1) 10/07/20 04:42 Seg Neutrophils % 45.2 % (40.0-70.0) 10/07/20 04:42 Seg Neutrophils # 2.8 K/mm3 (1.8-7.7) 10/07/20 04:42 PT 13.0 Sec. (12.2-14.9) 10/05/20 11:26 INR 0.99 (0.87-1.13) 10/05/20 11:26 APTT 38.9 Sec. (24.2-36.6) H 10/05/20 11:26 Sodium 141 mmol/L (137-145) 10/07/20 04:42 Sodium 141 mmol/L (137-145) 10/07/20 04:42 Potassium 3.9 mmol/L (3.6-5.0) 10/07/20 04:42 Potassium 3.9 mmol/L (3.6-5.0) 10/07/20 04:42 Chloride 107.7 mmol/L (98-107) H 10/07/20 04:42 Chloride 107.8 mmol/L (98-107) H 10/07/20 04:42 Carbon Dioxide 22 mmol/L (22-30) 10/07/20 04:42 Carbon Dioxide 23 mmol/L (22-30) 10/07/20 04:42 Anion Gap 14 mmol/L 10/07/20 04:42 Anion Gap 15 mmol/L 10/07/20 04:42 BUN 10 mg/dL (9-20) 10/07/20 04:42 BUN 10 mg/dL (9-20) 10/07/20 04:42 Creatinine 0.8 mg/dL (0.8-1.3) 10/07/20 04:42 Creatinine 0.8 mg/dL (0.8-1.3) 10/07/20 04:42 Estimated GFR > 60 ml/min 10/07/20 04:42 Estimated GFR > 60 ml/min 10/07/20 04:42 BUN/Creatinine Ratio 13 % 10/07/20 04:42 BUN/Creatinine Ratio 13 % 10/07/20 04:42 Glucose 82 mg/dL (75-100) 10/07/20 04:42 Glucose 83 mg/dL (75-100) 10/07/20 04:42 POC Glucose 54 mg/dL (70-105) L 10/05/20 11:04 Hemoglobin A1c 4.4 % (4-6) 10/06/20 00:57 Calcium 9.0 mg/dL (8.4-10.2) 10/07/20 04:42 Calcium 9.1 mg/dL (8.4-10.2) 10/07/20 04:42 Magnesium 2.00 mg/dL (1.7-2.3) 10/05/20 11:26 Total Bilirubin 0.30 mg/dL (0.1-1.2) 10/07/20 04:42 Direct Bilirubin 0.3 mg/dL (0-0.2) H 10/05/20 11:26 Indirect Bilirubin 0.6 mg/dL 10/05/20 11:26 AST 92 units/L (5-40) H 10/07/20 04:42 ALT 46 units/L (7-56) 10/07/20 04:42 Alkaline Phosphatase 42 units/L (35-129) 10/07/20 04:42 Total Creatine Kinase 972 units/L (55-170) H 10/08/20 00:33 CK-MB (CK-2) 57.7 ng/mL (0.0-4.0) H 10/05/20 11:26 CK-MB (CK-2) Rel Index 0.4 (0-4) 10/05/20 11:26 Total Protein 5.8 g/dL (6.3-8.2) L 10/07/20 04:42 Albumin 3.4 g/dL (3.9-5) L 10/07/20 04:42 Albumin/Globulin Ratio 1.4 % 10/07/20 04:42 Urine Color Straw (Yellow) 10/06/20 03:00 Urine Turbidity Clear (Clear) 10/06/20 03:00 Urine pH 7.0 (5.0-7.0) 10/06/20 03:00 Ur Specific [place] 1.005 (1.003-1.030) 10/06/20 03:00 Urine Protein <15 mg/dl mg/dL (Negative) 10/06/20 03:00 Urine Glucose (UA) Neg mg/dL (Negative) 10/06/20 03:00 Urine Ketones Neg mg/dL (Negative) 10/06/20 03:00 Urine Blood Neg (Negative) 10/06/20 03:00 Urine Nitrite Neg (Negative) 10/06/20 03:00 Urine Bilirubin Neg (Negative) 10/06/20 03:00 Urine Urobilinogen < 2.0 mg/dL (<2.0) 10/06/20 03:00 Ur Leukocyte Esterase Neg (Negative) 10/06/20 03:00 Urine WBC (Auto) < 1.0 /HPF (0.0-6.0) 10/06/20 03:00 Urine RBC (Auto) 3.0 /HPF (0.0-6.0) 10/06/20 03:00 Salicylates < 0.3 mg/dL (2.8-20.0) L 10/05/20 11:26 Urine Opiates Screen Presumptive negative 10/06/20 03:00 Urine Methadone Screen Presumptive negative 10/06/20 03:00 Acetaminophen 5.0 ug/mL (10.0-30.0) L 10/05/20 11:26 Ur Barbiturates Screen Presumptive negative 10/06/20 03:00 Ur Phencyclidine Scrn Presumptive negative 10/06/20 03:00 Ur Amphetamines Screen Presumptive negative 10/06/20 03:00 U Benzodiazepines Scrn Presumptive negative 10/06/20 03:00 Urine Cocaine Screen Presumptive negative 10/06/20 03:00 U Marijuana (THC) Screen Presumptive negative 10/06/20 03:00 Drugs of Abuse Note Disclamer 10/06/20 03:00 Plasma/Serum Alcohol < 0.01 % (0-0.07) 10/05/20 11:26 Coronavirus (PCR) Negative (Negative) 10/06/20 Unknown [place]/IV: Voiding Method Condom Catheter IV Catheter Type [Right Peripheral IV Forearm] Active Medications - Current Medications Current Medications: Generic Name Dose Route Start Last Admin Trade Name Freq PRN Reason Stop Dose Admin Acetaminophen 650 mg 10/06/20 00:28 Tylenol PO Q4H PRN Pain MILD(1-3)/Fever >100.5/COOLEY Alprazolam 0.5 mg 10/06/20 00:45 10/07/20 21:37 Xanax PO 0.5 mg BID ROXANNA Administration Benztropine Mesylate 1 mg 10/06/20 00:45 10/07/20 21:38 Cogentin PO 1 mg BID ROXANNA Administration Chlorpromazine HCl 150 mg 10/06/20 00:45 10/07/20 21:37 Thorazine PO 150 mg BID ROXANNA Administration Divalproex Sodium 500 mg 10/06/20 10:00 10/07/20 09:33 Depakote Er PO 500 mg DAILY ROXANNA Administration Famotidine 20 mg 10/06/20 10:00 10/07/20 21:37 Pepcid PO 20 mg BID ROXANNA Administration Heparin Sodium (Porcine) 5,000 unit 10/06/20 00:45 10/07/20 21:39 Heparin SUB-Q 5,000 unit Q12HR ROXANNA Administration Hydroxyzine Pamoate 25 mg 10/06/20 08:00 10/07/20 21:37 Vistaril PO 25 mg TID ROXANNA Administration Sodium Chloride 1,000 mls @ 125 mls/hr 10/06/20 00:30 10/07/20 21:37 Nacl 0.9% 1000 Ml IV 125 mls/hr DIRECT ROXANNA Administration Metoclopramide HCl 10 mg 10/06/20 00:28 Reglan IV Q6H PRN Nausea And Vomiting Ondansetron HCl 4 mg 10/06/20 00:28 Zofran IV Q8H PRN Nausea And Vomiting Oxybutynin Chloride 5 mg 10/06/20 08:00 10/07/20 21:37 Ditropan PO 5 mg TID ROXANNA Administration Oxycodone/Acetaminophen 1 tab 10/06/20 00:28 Percocet 5/325 PO Q6H PRN Pain, Moderate (4-6) Risperidone 2 mg 10/06/20 12:23 10/07/20 21:38 Risperdal PO 2 mg TID ROXANNA Administration Sodium Chloride 10 ml 10/06/20 10:00 10/07/20 21:39 Sodium Chloride Flush Syringe 10 Ml IV 10 ml BID ROXANNA Administration Sodium Chloride 10 ml 10/06/20 00:28 10/06/20 01:52 Sodium Chloride Flush Syringe 10 Ml IV 10 ml PRN PRN Administration LINE FLUSH Nutrition/Malnutrition Assess - Dietary Evaluation Nutrition/Malnutrition Findings: Nutrition Notes Start: 10/06/20 16:12 Freq: Status: Active Protocol: Document 10/06/20 16:12 OTTO (Rec: 10/06/20 16:13 TOTO [id number]) Nutrition Notes Need for Assessment generated from: expander,MST Initial or Follow up Brief Note Other Pertinent Diagnosis schizophrenia, rhabdomyolysis, bejarano bite Current Diet Regular Subjective/Other Information RN screen for MST. Pt reports eating 100% of breakfast and is planning to eat lunch. Pt unaware of weight hx. Pt appears well nourished. Nutrition Intervention Revisit per MD consult or patient Sign Off request:
[2020-10-08] MEDS: risperiDONE 1 MG TAB PO SCH (08:17)
[2020-10-08] MEDS: hydrOXYzine PAMOATE 25 MG CAP PO SCH (08:17)
[2020-10-08] MEDS: OXYBUTYNIN 5 MG TAB PO SCH (08:18)
[2020-10-08] MEDS: HEPARIN 5,000 UNIT/1 ML VIAL SUB-Q SCH (09:43)
[2020-10-08] MEDS: ALPRAZolam 0.5 MG TAB PO SCH (09:44)
[2020-10-08] MEDS: chlorproMAZINE 25 MG TAB PO SCH (09:44)
[2020-10-08] MEDS: FAMOTIDINE 20 MG TAB PO SCH (09:44)
[2020-10-08] MEDS: DIVALPROEX ER 500 MG TAB PO SCH (09:44)
[2020-10-08] MEDS: BENZTROPINE 1 MG TAB PO SCH (09:50)
== END 2020-10-08 11:30 | disposition home or self-care (01) | DRG 564 ==
LOC: ED 10:50 → 3A 15:55 → OBSVTOIN 10-06 14:58
PROVIDERS: ADMIT Internal Medicine; ATTEND Internal Medicine
DX: T79.6XXA Traumatic ischemia of muscle, initial encounter (principal); G93.41 Metabolic encephalopathy; T33.521A Superficial frostbite of right hand, initial encounter; F20.9 Schizophrenia, unspecified; Z20.828 Contact with and (suspected) exposure to other viral communicable diseases; F17.200 Nicotine dependence, unspecified, uncomplicated; D72.829 Elevated white blood cell count, unspecified; X31.XXXA Exposure to excessive natural cold, initial encounter
CPT/HCPCS: 36415; 80048; 80053; 80076; 80307; 80320; 81001; 82550; 82553; 82962; 83036; 83735; 85025; 85610; 85730; 87116; 90714; 96361; 96374; G0378; G0480; J1644; J7030; Q0161; Q0177; U0003